=== PATIENT | male | born 1975 | race Two or more races ===

== ENCOUNTER 2023-03-08 01:44 | Emergency (ER) | payer OTHER ==
[~2023-03-08] VITALS: Ht 182.9 cm; Wt 125.0 kg
[2023-03-08] MEDS ORDERED: TETANUS-DIPTH-ACEL PERTUSSIS 0.5ML SYR Tdap IM ONE (02:30)
[2023-03-08] MEDS ORDERED: LIDOCAINE W/ EPINEPHRINE 1% 20ML VIAL SC ONE (02:30)
[2023-03-08] MEDS ORDERED: CYCL-837 PO (05:21)
[2023-03-08 07:12] VITALS: BP 142/88
== END 2023-03-08 07:19 | disposition home or self-care (01) ==
LOC: EDBD 01:44 → ER 01:44
DX: S39.012A Strain of muscle, fascia and tendon of lower back, initial encounter (principal); S01.01XA Laceration without foreign body of scalp, initial encounter; M54.2 Cervicalgia; V43.62XA Car passenger injured in collision with other type car in traffic accident, initial encounter; Y93.89 Activity, other specified; Y92.488 Other paved roadways as the place of occurrence of the external cause; Y99.8 Other external cause status
CPT/HCPCS: 12002; 70450; 71045; 72125; 72128; 72131; 90471; 90715